=== PATIENT | male | born 1970 | race Hispanic/Latino ===

== ENCOUNTER 2019-05-07 21:00 | Observation (INO) | payer OTHER ==
--- NOTE | 2019-05-07 21:21 | RAD ---
EXAM: Single view of the chest HISTORY: Chest pain and shortness of breath COMPARISON: None FINDINGS: Single view of the chest shows a normal sized cardiomediastinal silhouette. There is no dominique dence of consolidation, mass, or pleural effusion. The bones are unremarkable. IMPRESSION: No evidence of acute cardiopulmonary disease
[2019-05-07 21:26] LABS: #Basophils 0.1 thou/uL (0.0-0.2); #Eosinphils 0.4 thou/uL (0.0-0.7); #Lymphocytes 3.1 thou/uL (1.20-3.40); #Monocytes 0.8 thou/uL (0.11-0.59); #Neutrophils 5.6 thou/uL (1.40-6.50); %Basophils 0.7 % (0.0-1.0); %Eosinophils 3.6 % (0.0-10.0); %Lymphocytes 31.1 % (21.0-51.0); %Monocytes 8.1 % (0.0-10.0); %Neutrophils 56.5 % (42.0-75.0); Hemoglobin 15.9 g/dL (14.0-18.0); Mean Corpuscular HGB CONC 33.8 g/dL (32.0-36.0); Mean Corpuscular Hemoglobin 30.6 pg (27.0-31.0); Mean Corpuscular Volume 90.4 fL (78.0-98.0); Mean Platelet Volume 6.6 fL (7.4-10.4); Platelet Count 356 thou/uL (130-400); RBC Distribution Width 12.6 % (11.5-14.5)
[2019-05-07 21:47] LABS: ALT (SGPT) 42 U/L (8-55); AST (SGOT) 42 U/L (5-34); Albumin 4.3 g/dL (3.5-5.0); Alkaline Phosphatase 151 U/L (40-110); Anion Gap 16 mmol/L (10-20); BUN (Urea Nitrogen) 15 mg/dL (8.9-20.6); Bilirubin, Total 0.3 mg/dL (0.2-1.2); Calc. Creatinine Clearance 0 mL/min (70-130); Calcium 9.5 mg/dL (7.8-10.44); Carbon Dioxide 21 mmol/L (22-29); Chloride 105 mmol/L (98-107); Estimated GFR-MDRD 86; Globulin 3.6 g/dL (2.4-3.5); Glucose 164 mg/dL (70-105); Lipase 52 U/L (8-78); Potassium 3.7 mmol/L (3.5-5.1); Protein, Total 7.9 g/dL (6.0-8.3); Sodium 138 mmol/L (136-145)
--- NOTE | 2019-05-07 22:28 | CT ---
EXAM: CTA of the chest HISTORY: Chest pain and shortness of breath COMPARISON: None TECHNIQUE: Multiple contiguous axial images were obtained a CTA of the chest with contrast per pulmon griselda embolism protocol. 3-D oblique MIP reformats and direct coronal reformats were performed. FINDINGS: HEART: Normal in size without focal cardiac abnormality. PULMONARY ARTERIES: Normal in caliber without filling defects to suggest pulmonary emboli. MEDIASTINUM: No hilar or mediastinal lymphadenopathy. LUNGS: No focal infiltrates or masses. PLEURAL SPACE: No pleural effusion or pneumothorax. CHEST WALL SOFT TISSUES: Unremarkable VISUALIZED OSSEOUS STRUCTURES: Degenerative changes in the spine. VISUALIZED SUBDIAPHRAGMATIC STRUCTURES: Unremarkable IMPRESSION: No evidence of pulmonary thromboembolism
[2019-05-07] MEDS ORDERED: Morphine 4 MG/ML VIAL ONE (22:29)
[2019-05-07] MEDS ORDERED: Aspirin Chewable 81 MG TAB ONE (22:29)
[2019-05-07] MEDS ORDERED: Labetalol HCl 100 MG/20 ML VIAL ONE (22:29)
[2019-05-07] MEDS ORDERED: Nitroglycerin 2% Ointment 1 INCH/1 GM Packet ONE (22:29)
[2019-05-07 23:39] LABS: Bacteria/HPF None Seen HPF (None Seen); Bilirubin Negative (Negative); Blood, Urine Negative (Negative); Clarity Clear (Clear); Glucose, Urine (Dipstick) >=1000 mg/dL (Negative); Leukocyte Negative Leu/uL (Negative); Mucous/LPF Rare LPF (<2+); Nitrite Negative (Negative); Protein, Urine (Dipstick) 50 mg/dL (Neg-Trace); Squamous Epithelial None Seen HPF (0-3); Urobilinogen 6 mg/dL (Less than 2); WBC/HPF 0-3 HPF (0-3)
[2019-05-07 23:53] LABS: Amphetamine Not Detected (NotDetected); Barbiturates Screen Not Detected (NotDetected); Benzodiazepine Screen Not Detected (NotDetected); Cocaine Metabolite Screen Not Detected (NotDetected); Medtox Control Line Valid? VALID (VALID); Medtox Reader # READER 4; Methadone Not Detected (NotDetected); Methamphetamine Not Detected (NotDetected); Opiate Screen Detected (NotDetected); Oxycodone Screen Not Detected (NotDetected); Phencyclidine (PCP) Not Detected (NotDetected); THC/Cannabinoid Screen Not Detected (NotDetected); Tricyclic Screen Not Detected (NotDetected)
[2019-05-08 00:03] VITALS: BMI 49.2
[2019-05-08] MEDS ORDERED: Labetalol HCl 100 MG/20 ML VIAL SLOW IVP PRN (00:23)
[2019-05-08] MEDS ORDERED: Morphine 2 MG/ML SYRINGE SLOW IVP PRN (00:24)
[2019-05-08 01:00] LABS: Troponin I Less than 0.010 ng/mL (< 0.028)
[2019-05-08] MEDS ORDERED: Dextrose 50% Abboject 50 ML SYRINGE IVP PRN (01:42)
[2019-05-08] MEDS ORDERED: HumaLOG 300 UNITS/3 ML VIAL SC PRN ×2 (01:42)
[2019-05-08] MEDS ORDERED: Dextrose 5% in Water 1,000 ML IV PRN (01:42)
[2019-05-08] MEDS: Acetaminophen 325 MG TAB PO PRN ×2 (01:53→09:26)
[2019-05-08 03:44] LABS: Troponin I Less than 0.010 ng/mL (< 0.028)
[2019-05-08] MEDS: Levothyroxine Sodium 100 MCG TAB PO SCH (05:27)
[2019-05-08] MEDS ORDERED: Aspirin Chewable 81 MG TAB PO SCH (09:00)
[2019-05-08 10:00] LABS: Cardiac Risk 4.1 (Less than 4.5)
[2019-05-08 10:18] LABS: Free T4 (Free Thyroxine) 0.91 ng/dL (0.70-1.48); Thyroid Stimulating Hormone 2.8793 uIU/mL (0.35-4.94)
[2019-05-08] MEDS ORDERED: Ketorolac Tromethamine 30 MG/ML VIAL IVP PRN (11:39)
[2019-05-08] MEDS ORDERED: diphenhydrAMINE 50 MG/ML VIAL IVP SCH (11:45)
[2019-05-08] MEDS ORDERED: Metoclopramide HCl 10 MG/2 ML VIAL IVP SCH (11:45)
[2019-05-08] MEDS ORDERED: Sodium Chloride 0.9% 1,000 ML IV SCH (11:45)
--- NOTE | 2019-05-08 11:55 | NM ---
NUCLEAR MEDICINE CARDIAC STRESS WITH EF AND WALL MOTION: TECHNIQUE: Stress only imaging is performed. Patient was administered 29.40 mCi of technetium 99m sestamibi intr avenously. FINDINGS: Homogeneous distribution of radiotracer into the left ventricle. End-diastolic volume 125 mL. End systolic volume 50 mL. Cardiac gating: Normal wall motion and thickening. 60% ejection fraction. IMPRESSION: 1. Homogeneous distribution of radiotracer in the left ventricle. 2. 60% ejection fraction. Transcribed Date/Time: 05/08/2019 12:25 PM
[2019-05-08] MEDS: Lisinopril 10 MG TAB PO SCH (12:38)
[2019-05-08] MEDS: Fenofibrate Nanocrystallized 145 MG TAB PO SCH (12:38)
[2019-05-08] MEDS: Venlafaxine HCl XR 150 MG CAP PO SCH (12:38)
--- NOTE | 2019-05-08 15:26 | MRI ---
Brain MRI without contrast: 05/08/2019 COMPARISON: None HISTORY: Worsening left-sided facial droop with headache TECHNIQUE: Multiplanar multisequence MR imaging of the brain obtained without contrast FINDINGS: The diffusion weighted imaging demonstrates no evidence for acute infarction. The axial gradient echo imaging demonstrates no evidence for intracranial hemorrhage. There is mild polypoid mucosal thickening involving the alveolar recess of the left maxillary sinus. Arterial flow voids at the axial level of the skull base appear grossly unremarkable on the T2-weight ed imaging. Regional bone marrow signal intensity appears within normal limits. No significant white matter disease noted. IMPRESSION: No acute findings. If there is clinical concern for Quinteros's palsy, MRI brain with and with out contrast using an IAC protocol advised.
[2019-05-08] MEDS: Aspirin 325 MG TAB PO SCH (15:50)
--- NOTE | 2019-05-08 17:40 | SS ---
DATE OF ADMISSION: 05/07/2019 DATE OF DISCHARGE: 05/08/2019 PCP AND BLADE CHANGER: Kevin Harris. PROCEDURES: 1. The patient had a chest x-ray, showed no evidence of acute cardiopulmonary process. 2. Had a chest, thorax CTA, showed no evidence of any pulmonary thromboemboli. 3. Had a nuclear stress test, normal wall motion and thickening. The patient has a 60% ejection fraction. The patient had a brain MRI, which showed no acute findings. SHORT COURSE SUMMARY: Mr. Roy is a 48-year-old male, who reported to the emergency room after complaining of chest pain, which started about 11 o'clock on day of admission. The patient reports some mild cough and shortness of breath that has been ongoing for the last couple of days. The patient reports shortness of breath and chest pain worsened throughout the day. The patient reports he checked his blood pressure while at work and it was 175/95. The patient reports some RIOS and chest pain while at work. 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 Reports that symptoms improved when he was not at work. He denied any fever or chills. Does report that he has been taking his blood pressure medicines, but as is on day of admission, it was not working. Reports history of a mini-stroke. The patient saw his instructional assistant several months ago and has an appointment to see his instructional assistant this coming . The patient states he does not smoke. He was admitted to the observation unit, underwent procedures as above. Troponins x3 were undetectable. BNP undetectable. TSH 2.87. D-dimer 0.49. CBC, unremarkable. Toxicology, negative for any illicit substances. UA, protein, glucose, urobilinogen, and white blood cells. He reports that chest pain has resolved. Shortness of breath resolved. Reported a headache today, which has improved with some fluids; Reglan, Benadryl, and some Toradol. The patient updated on procedure findings and the necessity to keep his Cardiology appointment on and discussed symptoms and workup while here. Vital signs remained stable. The patient is agreeable to be discharged home. ALLERGIES: NONE. HOME MEDICATIONS: 1. Aspirin 325 mg p.o. daily. 2. Fenofibrate 160 mg p.o. daily. 3. Glyburide 5 mg p.o. daily. 4. Levothyroxine 100 mcg p.o. daily. 5. Lisinopril 30 mg p.o. daily. 6. Metformin 1000 mg p.o. b.i.d. 7. Metoprolol 50 mg p.o. daily. 8. Effexor 150 mg p.o. daily. DISPOSITION: Home. DISPOSITION CONDITION: Stable. FOLLOWUP INSTRUCTIONS: The patient instructed to follow up with primary care physician within the next 7 days. Also stressed multiple times that he should keep his appointment with his instructional assistant as scheduled on , both of these physicians are located in [place]. Resume home medications. All questions were answered. The patient discharged home. Job ID: [id number]
[2019-05-08] MEDS ORDERED: Regadenoson 0.4 MG/5 ML SYRINGE ONE (20:24)
[2019-05-09] MEDS: Levothyroxine Sodium 100 MCG TAB PO SCH (05:00)
[2019-05-09 07:56] VITALS: TEMP 98.3
[2019-05-09] MEDS: Fenofibrate Nanocrystallized 145 MG TAB PO SCH (09:01)
[2019-05-09] MEDS: Aspirin 325 MG TAB PO SCH (09:01)
[2019-05-09] MEDS: Lisinopril 10 MG TAB PO SCH (09:01)
[2019-05-09 09:02] VITALS: BP 131/65
[2019-05-09] MEDS: Venlafaxine HCl XR 150 MG CAP PO SCH (09:02)
== END 2019-05-09 10:52 | disposition home or self-care (01) ==
LOC: ERS 21:00 → 2SW 23:59
PROVIDERS: ADMIT Internal Medicine; ATTEND Internal Medicine
DX: R07.9 Chest pain, unspecified (principal); R05 Cough; R06.02 Shortness of breath; I10 Essential (primary) hypertension; E11.9 Type 2 diabetes mellitus without complications; Z79.82 Long term (current) use of aspirin; Z79.84 Long term (current) use of oral hypoglycemic drugs; Z79.899 Other long term (current) drug therapy
CPT/HCPCS: 36415; 36416; 70551; 71045; 71275; 78452; 80053; 80061; 80306; 81003; 81015; 83690; 83735; 83880; 84439; 84443; 84484; 85025; 85379; 93005; 93017; 96361; 96374; 96375; A9500; G0378; J1200; J1885; J2270; J2765; J2785